=== PATIENT | female | born 1955 ===

== ENCOUNTER 2018-04-26 16:15 | Emergency (ER) | payer MEDICAID ==
[2018-04-26 16:35] VITALS: TEMP 98.3
[2018-04-26] MEDS ORDERED: Amoxicillin-Clav 875-125 mg Tab PO STA (17:21)
[2018-04-26 17:35] VITALS: RESP 18
[2018-04-26] MEDS ORDERED: Amoxicillin-Clav 875-125 mg Tab PO ONE (17:42)
[2018-04-26 17:53] VITALS: BP 100/70; PULSE 72; O2SAT 98
--- NOTE | 2018-04-26 18:46 | ED PDOC ---
HPI: Dental Pain/Injury Time Seen by Provider: 04/26/18 16:54 Chief Complaint (Nursing): Dental Pain Chief Complaint (Provider): Dental Pain History Per: Patient, Die Trouble Shooter ([id number]) History/Exam Limitations: no limitations Onset/Duration Of Symptoms: Days (x4) Current Symptoms Are (Timing): Still Present Additional Complaint(s): 62 year old female presents to the ED for evaluation of dental pain. Patient states that three weeks ago she had a tooth extracted from her right lower jaw, and four days ago, developed worsening pain and swelling to the area. She reports seeing her dentist who prescribed Motrin, last dose taken yesterday, with little relief. Otherwise, denies fever and current antibiotic use. PMD: Saida Sam Past Medical History Reviewed: Historical Data, Nursing Documentation, Vital Signs Vital Signs: Last Vital Signs Temp 98.3 F 04/26/18 16:23 Pulse 72 04/26/18 17:52 Resp 18 04/26/18 17:52 BP 100/70 04/26/18 17:52 Pulse Ox 98 04/26/18 17:52 - Medical History PMH: Bronchitis, Gastritis - Surgical History Other surgeries: ovarian cyst removal - Family History Family History: States: No Known Family Hx - Social History Current smoker - smoking cessation education provided: No Alcohol: None Drugs: Denies - Immunization History Hx Tetanus Toxoid Vaccination: No Hx Influenza Vaccination: No Hx Pneumococcal Vaccination: No - Home Medications Home Medications: Ambulatory Orders Medication Instructions Recorded Famotidine [Pepcid] 20 mg PO BID #20 tab 12/22/16 Pantoprazole Sodium [Protonix] 40 mg PO QAM #30 ect 12/22/16 Amoxicillin/Clavulanate [Augmentin 1 tab PO BID #19 tab 04/26/18 875 MG-125 MG] - Allergies Allergies/Adverse Reactions: Allergies Allergy/AdvReac Type Severity Reaction Status Date / Time No Known Allergies Allergy Unverified 12/22/16 07:00 Review of Systems ROS Statement: Except As Marked, All Systems Reviewed And Found Negative Constitutional: Negative for: Fever ENT: Positive for: Other (right lower jaw pain and swelling) Physical Exam - Reviewed Nursing Documentation Reviewed: Yes Vital Signs Reviewed: Yes - Physical Exam Appears: Positive for: No Acute Distress Head Exam: Positive for: ATRAUMATIC, NORMOCEPHALIC ENT: Positive for: Other (Right mandibular lateral incisor area: minimal gingival swelling). Negative for: Pharyngeal Erythema, Tonsillar Exudate, Tonsillar Swelling Neurologic/Psych: Positive for: Alert, Oriented (x3) - ECG O2 Sat by Pulse Oximetry: 98 (RA) Pulse Ox Interpretation: Normal Medical Decision Making Medical Decision Making: Time: 1720 Initial Impression: dental pain and swelling s/p extraction Initial Plan: --Augmentin 1 tab PO --Patient advised to follow up with her dentist tomorrow, but if temp of 100.4 or above develops, come to ED immediately. Scribe Attestation: Documented by Nayely Trevino, acting as a scribe for Aakash Lucas PA-C. Provider Scribe Attestation: All medical record entries made by the Scribe were at my direction and personally dictated by me. I have reviewed the chart and agree that the record accurately reflects my personal performance of the history, physical exam, medical decision making, and the department course for this patient. I have also personally directed, reviewed, and agree with the discharge instructions and disposition. Disposition - Clinical Impression Clinical Impression: Dental abscess - Patient ED Disposition Is Patient to be Admitted: No - Disposition Referrals: [facility] [Outside] Disposition: Routine/Home Disposition Time: 17:20 Condition: STABLE Additional Instructions: FOLLOW UP WITH YOUR DENTIST TOMORROW WITHOUT FAIL DUNIA DILLARD thank you for letting us take care of you today. Your provider was Hannah Mckeon MD and you were treated for TOOTH PAIN. The emergency medical care you received today was directed at your acute symptoms. If you were prescribed any medication, please fill it and take as directed. It may take several days for your symptoms to resolve. Return to the Emergency Department if your symptoms worsen, do not improve, or if you have any other problems. Please contact your doctor or call one of the physicians/clinics you have been referred to that are listed on the Patient Visit Information form that is included in your discharge packet. Bring any paperwork you were given at discharge with you along with any medications you are taking to your follow up visit. Our treatment cannot replace ongoing medical care by a primary care provider outside of the emergency department. Thank you for allowing the [facility] team to be part of your care today. If you had an X-Ray or CT scan: A Radiologist will review the ED reading if any change in treatment is needed we will contact you. If you had a blood, urine, or wound culture: It will take several days for the results, if any change in treatment is needed we will contact you. If you had an STI test: It will take 48 hours for the results. Please call after 1 week if you have not heard back. Prescriptions: Amoxicillin/Clavulanate [Augmentin 875 MG-125 MG] 1 tab PO BID #19 tab Instructions: Tooth Abscess (DC) Forms: [employer] (Macedonian) Print Language: SPANISH
== END 2018-04-26 17:53 | disposition home or self-care (01) ==
LOC: H.ER 16:15
DX: K04.7 Periapical abscess without sinus (principal)

== ENCOUNTER 2018-06-16 11:25 | Emergency (ER) | payer MEDICAID ==
[2018-06-16] MEDS ORDERED: Oxycodone/Acetaminophen 5/325 mg Tab PO STA (12:14)
[2018-06-16] MEDS ORDERED: Oxycodone/Acetaminophen 5/325 mg Tab ONE (12:19)
--- NOTE | 2018-06-16 13:48 | RAD ---
Date of service: 06/16/2018 PROCEDURE: Left Knee Radiographs. HISTORY: Pain. COMPARISON: None. FINDINGS: BONES: No fracture. JOINTS: osteoarthritis. JOINT EFFUSION: None. OTHER FINDINGS: None. IMPRESSION: Mild tricompartmental osteoarthrosis. No fracture or lytic lesion.
--- NOTE | 2018-06-16 13:53 | RAD ---
Date of service: 06/16/2018 PROCEDURE: HISTORY: fall yesterday r/o fracture COMPARISON: None TECHNIQUE: Three views each side FINDINGS: Right elbow: Radial head neck fracture with right elbow joint effusion. Well corticated ossification borders lateral epicondyle old osseous avulsion here inferred. Calcification ossification borders the medial humeral epicondyle old less displaced osseous avulsion and/or prominent calcific tendinopathy and/or ligamentous periligamentous ossification calcification here considerations. Ulnar coronoid spurring noted. Left elbow medial epicondylar cortical hyperostoses-spurring and/or callus tendinous and/or Afsaneh ligamentous ossification favored. An old partially avulsed injury here is another consideration. No acute pathology here suspect. Ulnar coronoid spurring suggested. IMPRESSION: Right radial head neck fracture no displacement. No gross intra-articular extension appreciated. Right elbow joint effusion. No left elbow fracture appreciated. No dislocation or any side noted. Other findings as above. Comments: Study marked for PA review .
--- NOTE | 2018-06-16 14:27 | RAD ---
Date of service: 06/16/2018 PROCEDURE: HISTORY: fall yesterday r/o fracture COMPARISON: None TECHNIQUE: Three views FINDINGS: A comminuted distal radial metaphyseal to epiphyseal fracture with radial ulnar joint extension and radiocarpal joint extension is present. There is some displacement of fracture fragments. The distal fracture fragments slightly more volarly displaced approximately 2 mm. Trace dorsal apical angulation present. No dislocation seen. Marked overlying soft tissue swelling present IMPRESSION: Comminuted distal radial fracture with intra-articular extension. Soft tissue swelling present Comments: Study marked for PA review .
--- NOTE | 2018-06-16 14:28 | RAD ---
PROCEDURE: Left Hand Radiographs. HISTORY: fall yesterday r/o fracture COMPARISON: None. FINDINGS: BONES: Impacted comminuted intra-articular fracture distal left radius. Volar angulation identified. Adjacent scaphoid lunate and ulna are unremarkable. JOINTS: Osteoarthritic change involving proximal and distal interphalangeal joints. SOFT TISSUES: Soft tissue swelling attests to the acuity of the fracture. OTHER FINDINGS: None. IMPRESSION: Acute, comminuted intra-articular fracture distal left radius.
--- NOTE | 2018-06-16 14:29 | RAD ---
Date of service: 06/16/2018 PROCEDURE: Left Wrist Radiographs. HISTORY: fall yesterday r/o fracture COMPARISON: None. FINDINGS: BONES: A comminuted distal radial metaphyseal to epiphyseal fracture with radial ulnar joint extension and radiocarpal joint extension is present. There is some displacement of fracture fragments. The distal fracture fragments slightly more volarly displaced approximately 2 mm. Trace dorsal apical angulation present. A concomitant trabecular microfracture without displacement of the ulnar styloid is possible. JOINTS: No dislocation. SOFT TISSUES: Marked soft tissue swelling present OTHER FINDINGS: None. IMPRESSION: Distal radial comminuted fracture with intra-articular extension-as above. Comments: Study marked for PA review .
[2018-06-16 18:00] VITALS: BP 130/80; PULSE 77; RESP 18; TEMP 98; O2SAT 99
--- NOTE | 2018-06-16 19:57 | ED PDOC ---
Upper Extremity Pain/Injury Time Seen by Provider: 06/16/18 11:52 Chief Complaint (Nursing): Upper Extremity Problem/Injury Additional Complaint(s): 63 year old right handed female with PMH of bronchitis and gastritis presents to the ED complaining of left wrist pain and right elbow pain x 1 day. Patient states that yesterday she was attempting to put on her coat when she lost her balance and fell forward onto both hands. Denies head strike or loss of consciousness. She was seen at [facility] yesterday and diagnosed with a left distal radius fracture and a right radial head fracture of unknown severity. Patient does not have x-ray desk with her. Her left arm is in a loose fitting dorsal wrist splint with a sling. She was discharged with prescriptions for Percocet, which she has not filled, and Orthopedic follow up in [place]. Patient here today requesting cast, stating that the orthopedic in [place] is too far of a drive. Currently complaining of severe left wrist pain worse with movement. Denies fever, chills, numbness, paresthesias, headache, neck pain, back pain, nausea, vomiting, vision changes, dizziness. Past Medical History Reviewed: Historical Data, Nursing Documentation, Vital Signs Vital Signs: Last Vital Signs Temp 98 F 06/16/18 17:57 Pulse 77 06/16/18 17:57 Resp 18 06/16/18 17:57 BP 130/80 06/16/18 17:57 Pulse Ox 99 06/16/18 17:57 - Medical History PMH: Bronchitis, Gastritis - Family History Family History: States: Unknown Family Hx - Immunization History Hx Tetanus Toxoid Vaccination: No Hx Influenza Vaccination: No Hx Pneumococcal Vaccination: No - Home Medications Home Medications: Ambulatory Orders Medication Instructions Recorded Famotidine [Pepcid] 20 mg PO BID #20 tab 12/22/16 Pantoprazole Sodium [Protonix] 40 mg PO QAM #30 ect 12/22/16 Amoxicillin/Clavulanate [Augmentin 1 tab PO BID #19 tab 04/26/18 875 MG-125 MG] - Allergies Allergies/Adverse Reactions: Allergies Allergy/AdvReac Type Severity Reaction Status Date / Time No Known Allergies Allergy Unverified 06/16/18 11:39 Review of Systems ROS Statement: Except As Marked, All Systems Reviewed And Found Negative Constitutional: Negative for: Fever, Chills Eyes: Negative for: Vision Change Cardiovascular: Negative for: Chest Pain, Palpitations Respiratory: Negative for: Cough, Shortness of Breath Gastrointestinal: Negative for: Nausea, Vomiting, Abdominal Pain Musculoskeletal: Positive for: Arm Pain (right elbow; left forearm and wrist), Leg Pain (left knee ). Negative for: Neck Pain, Shoulder Pain, Back Pain, Hand Pain, Foot Pain Skin: Positive for: Bruising (left wrist), Other (swelling left wrist and hand). Negative for: Lesions Neurological: Negative for: Weakness, Numbness, Headache, Dizziness Physical Exam - Reviewed Nursing Documentation Reviewed: Yes Vital Signs Reviewed: Yes - Physical Exam Appears: Positive for: Well, Non-toxic, No Acute Distress Head Exam: Positive for: ATRAUMATIC, NORMAL INSPECTION, NORMOCEPHALIC Skin: Positive for: Normal Color, Warm, DRY Eye Exam: Positive for: EOMI, Normal appearance, PERRL Neck: Positive for: Normal, Painless ROM Cardiovascular/Chest: Positive for: Regular Rate, Rhythm Respiratory: Positive for: CNT, Normal Breath Sounds Pulses-Radial (L): 2+ Pulses-Radial (R): 2+ Back: Positive for: Normal Inspection Extremity: Positive for: Tenderness (dorsal and ventral aspects of lateral left wrist; left anterior knee), Capillary Refill (<2s), Swelling (left wrist and dorsum of hand), Other (Full ROM of hands; arms and legs neurovascularly intact b/l; small abrasion to left anterior knee). Negative for: Normal ROM (pain with flexion and extension of right elbow; decreased ROM of left wrist secondary to pain and swelling), Deformity Neurologic/Psych: Positive for: Alert, Oriented, Gait (steady). Negative for: Motor/Sensory Deficits - ECG O2 Sat by Pulse Oximetry: 99 Medical Decision Making Medical Decision Making: Initial Plan: --bilateral elbow XR --left knee XR --left wrist XR --left hand XR --pain control Bilateral Elbow XR: right elbow with fracture of radial head; left elbow with no acute fracture Left Knee XR: negative for acute fracture or dislocation Left Wrist XR: comminuted fracture of distal radius Left Hand XR: comminuted fracture of distal radius; no acute fracture in hand [address] Uribe, orthopedist, who recommends sugar tong splint on left arm and a sling on the right arm, and will see patient in outpatient follow up on Thursday. Will send XR results to Dr. Uribe for further evaluation. Pt's left forearm splinted in sugartong splint by me. Pt placed in b/l slings by nursing. Extremity's neurovascular exam is unchanged after splint Diagnostic study results discussed with patient, who understands and agrees with plan of care. Educated on prescription use and importance of followup. Impression: Distal radius fracture; radial head fracture Plan: --pain control --keep extremity in splint --ortho followup Thursday with Dr. Uribe --CAROLYN --return for new/worsening symptoms Procedures - Time-Out Type of Procedure: Splint Site of Procedure: Left forearm Correct Patient: Yes Correct Procedure: Yes PA/Tech: Shital Silva PA-C - Splinting Location: left forearm Hand-Made Type: orthoglass Splint: sugar-tong Pre-Proc Neuro Vasc Exam: normal Post-Proc Neuro Vasc Exam: normal, unchanged from pre-exam Progress: Pt tolerated well without complication. Sling applied. Disposition - Clinical Impression Clinical Impression: Fracture, radius, distal, Fracture of radial head, right, closed - Patient ED Disposition Is Patient to be Admitted: No Discussed With Dr.: Gera Uribe Comment: Recommends sugartong splint on left arm, sling on right arm. Will see pt in office on Thursday. Doctor Will See Patient In The: Office Counseled Patient/Family Regarding: Studies Performed, Diagnosis, Need For Follo wup - Disposition Referrals: Gera Uribe MD [Medical Doctor] - Disposition: Routine/Home Disposition Time: 15:00 Condition: IMPROVED Additional Instructions: FOLLOWUP WITH ORTHOPEDIC DOCTOR ON THURSDAY Take Percocet every 6 hours as needed for pain, supplement with ibuprofen as needed Keep splint and sling on until followup with orthopedic Ice, rest injured arms No strenuous activity Return if symptoms persist or worsen Instructions: Radius Fracture Forms: [facility] (Uzbek), [facility] ED School/Work Excuse
== END 2018-06-16 16:43 | disposition short-term general hospital (02) ==
LOC: H.ER 11:25
DX: S52.572A Other intraarticular fracture of lower end of left radius, initial encounter for closed fracture (principal)